=== PATIENT | male | born 1965 | race Caucasian/White ===

== ENCOUNTER 2017-12-18 19:58 | Emergency (ER) | payer MEDICARE, MEDICAID | END 2017-12-18 21:22 | disposition home or self-care (01) | LOC: ERS 19:58 | DX: S10.93XA Contusion of unspecified part of neck, initial encounter (principal); M10.9 Gout, unspecified; K21.9 Gastro-esophageal reflux disease without esophagitis; D64.9 Anemia, unspecified; Z79.899 Other long term (current) drug therapy; Y04.0XXA Assault by unarmed brawl or fight, initial encounter | CPT/HCPCS: 99284 ==

== ENCOUNTER 2019-03-05 22:29 | Emergency (ER) | payer MEDICARE, MEDICAID ==
--- NOTE | 2019-03-05 22:59 | CT ---
CT CERVICAL SPINE NONCONTRAST: DATE: 03/05/2019 HISTORY: cervical trauma FINDINGS: There are no jumped or perched facets. There is no evidence of acute fracture. The vertebral body hei ghts are maintained. There is no prevertebral soft tissue swelling. IMPRESSION: No evidence of acute fracture or acute traumatic subluxation.
== END 2019-03-05 23:44 | disposition home or self-care (01) ==
LOC: ERS 22:29
DX: S16.1XXA Strain of muscle, fascia and tendon at neck level, initial encounter (principal); K21.9 Gastro-esophageal reflux disease without esophagitis; D64.9 Anemia, unspecified; M10.9 Gout, unspecified; F32.9 Major depressive disorder, single episode, unspecified; V49.9XXA Car occupant (driver) (passenger) injured in unspecified traffic accident, initial encounter
CPT/HCPCS: 72125

== ENCOUNTER 2024-07-26 09:16 | Emergency (ER) | payer MEDICARE, MEDICAID ==
[2024-07-26] MEDS ORDERED: Boostrix 0.5 ML (Tdap) VIAL (>/=7 yrs of age) ONE (09:48)
[2024-07-26] MEDS ORDERED: Lidocaine 1% PF 5 ML VIAL ONE (09:48)
[2024-07-26] MEDS ORDERED: Bacitracin 1 PK ONE (09:48)
== END 2024-07-26 11:55 | disposition home or self-care (01) ==
LOC: ERS 09:16
DX: S61.210A Laceration without foreign body of right index finger without damage to nail, initial encounter (principal); Z23 Encounter for immunization; W26.0XXA Contact with knife, initial encounter
CPT/HCPCS: 12001; 90471; 90715

== ENCOUNTER 2024-08-07 10:39 | Emergency (ER) | payer MEDICAID, MEDICARE | END 2024-08-07 11:30 | disposition home or self-care (01) | LOC: ERS 10:39 | DX: S61.210D Laceration without foreign body of right index finger without damage to nail, subsequent encounter (principal); W26.0XXD Contact with knife, subsequent encounter ==

== ENCOUNTER 2025-03-31 13:09 | Emergency (ER) | payer MEDICAID, MEDICARE ==
[~2025-03-31 13:09] MED LIST: Iopamidol-370 76% 500 ML MDV (1 ML CHARGE) ONE
[2025-03-31 15:16] LABS: Bacteria/HPF None Seen HPF (None Seen); CAUTI Indications for Culture Pelvic or flank pain; Glucose, Urine (Dipstick) Normal (Negative); Leukocyte Negative Leu/uL (Negative); Protein, Urine (Dipstick) Negative (Neg-Trace); RBC/HPF 0-3 HPF (0-3); Specific Gravity, Urine 1.017 (1.002-1.036); WBC/HPF 0-3 HPF (0-3)
[2025-03-31 15:24] LABS: Urine Culture Reflex No No
[2025-03-31 16:05] LABS: #Basophils 0.06 10x3/uL (0.0-0.2); #Eosinophils 0.65 10x3/uL (0.0-0.7); #Monocytes 0.66 10x3/uL (0.11-0.59); #Neutrophils 3.93 10x3/uL (1.40-6.50); %Basophils 0.8 % (0.0-1.0); %Eosinophils 8.6 % (0.0-10.0); %Lymphocytes 29.8 % (21.0-51.0); %Monocytes 8.7 % (0.0-10.0); %Neutrophils 52.0 % (42.0-75.0); Hematocrit 45.1 % (42.0-52.0); Hemoglobin 15.2 g/dL (14.0-18.0); Mean Corpuscular Hemoglobin 32.3 pg (27.0-31.0); Mean Corpuscular Volume 95.8 fL (78.0-98.0); Platelet Count 197 10x3/uL (130-400); Red Blood Cell (RBC) Count 4.71 mill/uL (4.70-6.10); White Blood Cell (WBC) Count 7.56 10x3/uL (4.8-10.8)
[2025-03-31 16:23] LABS: ALT (SGPT) 43 U/L (Less than 45); AST (SGOT) 38 U/L (11-34); Albumin 4.6 g/dL (3.1-4.5); Alkaline Phosphatase 35 U/L (40-110); Anion Gap 13 mmol/L (10-20); BUN (Urea Nitrogen) 19 mg/dL (8.4-25.7); Bilirubin, Total 0.4 mg/dL (0.3-1.2); Calc. Creatinine Clearance 0 mL/min (70-130); Calcium 9.9 mg/dL (7.8-10.44); Carbon Dioxide 24 mmol/L (22-29); Chloride 108 mmol/L (98-107); Globulin 3.2 g/dL (2.4-3.5); Glucose 102 mg/dL (70-105); Potassium 3.9 mmol/L (3.5-5.1); Sodium 141 mmol/L (136-145)
== END 2025-03-31 19:45 | disposition home or self-care (01) ==
LOC: ERS 13:09
DX: R10.9 Unspecified abdominal pain (principal); K92.1 Melena; K21.9 Gastro-esophageal reflux disease without esophagitis; Z79.899 Other long term (current) drug therapy
CPT/HCPCS: 74174; 80053; 81001; 83690; 85025; 86850; 86900; 86901; Q9967